=== PATIENT | female | born 1955 | race African-American/Black ===

== ENCOUNTER 2016-11-18 10:03 | Emergency (ER) | payer MEDICAID ==
[~2016-11-18] VITALS: Ht 165.1 cm; Wt 86.0 kg
[2016-11-18 10:22] VITALS: BP 111/72
[2016-11-18] MEDS ORDERED: PREDNISONE 20MG TABLET PO STA (12:08)
[2016-11-18] MEDS ORDERED: ALBUTEROL (0.083%) 2.5MG/3ML NEB HHN STA (12:08)
== END 2016-11-18 13:46 | disposition home or self-care (01) ==
LOC: ER 13:36
DX: J45.909 Unspecified asthma, uncomplicated (principal); R05 Cough; E78.00 Pure hypercholesterolemia, unspecified; F17.200 Nicotine dependence, unspecified, uncomplicated
CPT/HCPCS: 94640; 99283; J7512; J7611

== ENCOUNTER 2016-12-15 21:53 | Emergency (ER) | payer MEDICAID ==
[~2016-12-15] VITALS: Ht 172.7 cm; Wt 93.0 kg
[2016-12-16] MEDS ORDERED: PREDNISONE 20MG TABLET PO ONE (07:15)
[2016-12-16 08:00] VITALS: BP 118/76
== END 2016-12-16 08:40 | disposition home or self-care (01) ==
LOC: ER 22:21
DX: J44.9 Chronic obstructive pulmonary disease, unspecified (principal); J32.9 Chronic sinusitis, unspecified; F17.200 Nicotine dependence, unspecified, uncomplicated
CPT/HCPCS: 99283; J7512; Z7610

== ENCOUNTER 2018-10-15 12:22 | Emergency (ER) | payer MEDICARE, MEDICAID ==
[~2018-10-15] VITALS: Ht 172.7 cm; Wt 82.0 kg
[2018-10-15 12:31] VITALS: BP 124/82
[2018-10-15] MEDS ORDERED: BENZONATATE 100MG CAPSULE PO ONE (15:15)
== END 2018-10-15 16:23 | disposition home or self-care (01) ==
LOC: ER 12:22
DX: J06.9 Acute upper respiratory infection, unspecified (principal); J45.909 Unspecified asthma, uncomplicated; F17.200 Nicotine dependence, unspecified, uncomplicated; Z87.09 Personal history of other diseases of the respiratory system
CPT/HCPCS: 71045; 99283

== ENCOUNTER 2020-09-01 11:37 | Emergency (ER) | payer MEDICARE, MEDICAID ==
[~2020-09-01] VITALS: Ht 174 cm; Wt 77.0 kg
[2020-09-01 11:44] VITALS: BP 119/80
[2020-09-01] MEDS ORDERED: CIPR-264 PO (11:50)
[2020-09-01 12:27] LABS: CLARITY URINE CLEAR (CLEAR); COLOR URINE YELLOW (YELLOW); KETONES URINE NEGATIVE (NEGATIVE); LEUKOCYTE ESTERASE URINE NEGATIVE (NEGATIVE); NITRITE URINE NEGATIVE (NEGATIVE); OCCULT BLOOD URINE NEGATIVE (NEGATIVE); PROTEIN URINE NEGATIVE (NEGATIVE); SPECIFIC GRAVITY URINE 1.015 (1.005-1.030); UROBILINOGEN URINE 0.2 E.U./dL (0.2-1.0)
[2020-09-01] MEDS ORDERED: CEFU500T41 MT (12:35)
== END 2020-09-01 12:50 | disposition home or self-care (01) ==
LOC: ER 11:37
DX: R30.0 Dysuria (principal); Z87.440 Personal history of urinary (tract) infections; Z90.721 Acquired absence of ovaries, unilateral
CPT/HCPCS: 81003; 99283

== ENCOUNTER 2020-10-14 23:31 | Emergency (ER) | payer MEDICARE, MEDICAID ==
[~2020-10-14] VITALS: Ht 172.7 cm; Wt 78.0 kg
[~2020-10-14 23:31] MED LIST: CEFU500T41 MT; CIPR-264 PO
[2020-10-15 00:06] VITALS: BP 122/76
== END 2020-10-15 01:13 | disposition home or self-care (01) ==
LOC: ER 23:31
DX: T16.2XXA Foreign body in left ear, initial encounter (principal); X58.XXXA Exposure to other specified factors, initial encounter; Y93.89 Activity, other specified; Y92.89 Other specified places as the place of occurrence of the external cause; Y99.8 Other external cause status
CPT/HCPCS: 99284

== ENCOUNTER 2022-08-22 11:03 | Emergency (ER) | payer MEDICARE, MEDICAID ==
[~2022-08-22] VITALS: Ht 172.7 cm; Wt 78.5 kg
[2022-08-22 11:12] VITALS: BP 116/78
[2022-08-22] MEDS ORDERED: NAPR-681 PO (12:37)
== END 2022-08-22 13:02 | disposition home or self-care (01) ==
LOC: ER 12:47
DX: S93.601A Unspecified sprain of right foot, initial encounter (principal); E78.00 Pure hypercholesterolemia, unspecified; X58.XXXA Exposure to other specified factors, initial encounter; Y93.9 Activity, unspecified; Y92.89 Other specified places as the place of occurrence of the external cause; Y99.8 Other external cause status
CPT/HCPCS: 73630; 99283